=== PATIENT | female | born 1965 ===

== ENCOUNTER 2022-03-21 08:23 | Outpatient (CLI) | payer OTHER | END 2022-03-21 08:25 | disposition home or self-care (01) | LOC: RX STUDY 08:23 | PROVIDERS: ATTEND Urology | DX: N39.46 Mixed incontinence (principal); N81.10 Cystocele, unspecified | CPT/HCPCS: 51600; 74430; A9698 ==

== ENCOUNTER → 2023-02-11 | Outpatient (CLI) | payer OTHER | END | disposition home or self-care (01) | LOC: RAD 10:55 | PROVIDERS: ATTEND Orthopaedic Surgery | DX: M25.511 Pain in right shoulder (principal); M25.561 Pain in right knee ==